=== PATIENT | male | born 2000 | race Caucasian/White ===

== ENCOUNTER 2024-02-27 10:04 | Emergency (ER) | payer SELFPAY ==
[~2024-02-27] VITALS: Ht 170.2 cm; Wt 79.9 kg
[2024-02-27 10:15] VITALS: TEMP 98
[2024-02-27] MEDS ORDERED: NS 1,000 ML IV ONE (10:30)
[2024-02-27] MEDS ORDERED: Ketorolac 30 MG/ML VIAL IV ONE (10:30)
[2024-02-27] MEDS ORDERED: Ondansetron 4 MG/2 ML VIAL IV ONE (10:30)
[2024-02-27 10:59] LABS: BASO % 0.9 % (0.0-2.0); EOS # 0.1 K/mm3 (0.0-0.7); EOS % 2.9 % (0.0-4.0); GRAN # 2.3 K/mm3 (1.4-6.5); GRAN % 50.8 % (42.2-75.2); HEMATOCRIT 46.4 % (42.0-52.0); HEMOGLOBIN 15.2 g/dl (13.5-18.0); LYMPH # 1.7 K/mm3 (1.2-3.4); LYMPH % 37.8 % (20.0-51.0); MEAN CELL VOLUME 95 fl (80.0-100.0); MEAN CORPUSCULAR HEMOGLOBIN 31 pg (27-31); MEAN CORPUSCULAR HGB CONC 33 g/dl (33.0-37.0); MEAN PLATELET VOLUME 12.2 fl (7.4-10.4); MONO # 0.3 K/mm3 (0.1-0.6); MONO % 7.4 % (1.7-9.3); PLATELET COUNT 137 K/mm3 (130-400); RED BLOOD COUNT 4.91 M/mm3 (4.20-5.60); REDCELL DISTRIBUTION WIDTH-CV 13.3 % (11.5-14.5)
[2024-02-27 11:13] LABS: ALBUMIN 4.1 g/dL (3.5-5.0); BILIRUBIN,TOTAL 0.6 mg/dL (0.2-1.2); CALCIUM 9.9 mg/dL (8.4-10.2); CREATININE, serum 1.08 mg/dL (0.72-1.25); POTASSIUM 3.8 mEq/L (3.5-4.5); TOTAL PROTEIN 7.2 g/dl (6.2-8.1)
[2024-02-27] MEDS ORDERED: Lidocaine 2% Viscous 15 ML UNIT DOSE MM ONE (11:30)
[2024-02-27] MEDS ORDERED: Famotidine 20 MG TAB PO ONE (11:30)
[2024-02-27] MEDS ORDERED: Mag/Al Hydrox/Simeth Susp 30 ML CUP PO ONE (11:30)
[2024-02-27] MEDS ORDERED: PROTONIX 40MG T40 MG PO (11:46)
[2024-02-27 12:32] LABS: URINE APPEARANCE CLEAR (CLEAR/HAZY); URINE BLOOD NEGATIVE (NEGATIVE); URINE COLOR YELLOW (YELLOW); URINE GLUCOSE NEGATIVE (NEGATIVE); URINE KETONE NEGATIVE (NEGATIVE); URINE NITRATE NEGATIVE (NEGATIVE); URINE PROTEIN(semi-quant) NEGATIVE (NEGATIVE); URINE UROBILINOGEN 0.2 E.U/dL (0.2-1.0)
[2024-02-27 12:39] VITALS: BP 121/81; PULSE 49
[2024-02-27 12:57] LABS: COLLECTION METHOD CLEAN CATCH
== END 2024-02-27 12:55 | disposition home or self-care (01) ==
LOC: COL.ER 10:04
PROVIDERS: Nurse Practitioner Primary Care
DX: R10.13 Epigastric pain (principal); R10.32 Left lower quadrant pain; R10.11 Right upper quadrant pain; R10.12 Left upper quadrant pain
CPT/HCPCS: J1885; J7030

== ENCOUNTER 2024-05-10 12:06 | Emergency (ER) | payer SELFPAY ==
[~2024-05-10] VITALS: Ht 170.2 cm; Wt 77.3 kg
[~2024-05-10 12:06] MED LIST: PROTONIX 40MG T40 MG PO
[2024-05-10 12:12] VITALS: TEMP 98.5
[2024-05-10] MEDS ORDERED: IMITREX100 MG PO (14:00)
[2024-05-10 14:10] VITALS: BP 117/78; PULSE 66
== END 2024-05-10 14:10 | disposition home or self-care (01) ==
LOC: COL.ER 12:06
DX: R51.9 Headache, unspecified (principal)